=== PATIENT | male | born 1990 | race Caucasian/White ===

== ENCOUNTER 2018-07-07 08:17 | Day surgery (SDC) | payer MEDICAID ==
[~2018-07-07] VITALS: Ht 180.3 cm; Wt 83.5 kg
[2018-07-07] MEDS ORDERED: PROPOFOL 200MG/ 20ML VIAL (DIPRIVAN) IV ONE (09:48)
[2018-07-07] MEDS ORDERED: fentaNYL CITRATE/PF 100 MCG/2 ML AMP IVP ONE (09:48)
[2018-07-07] MEDS ORDERED: ONDANSETRON HCL 4 MG/2 ML VIAL IVP ONE (09:48)
[2018-07-07] MEDS ORDERED: MIDAZOLAM HCL 5 MG/5 ML VIAL IVP ONE (09:48)
[2018-07-07] MEDS ORDERED: LR 1,000 ML IV.SOLN IV ONE (09:48)
[2018-07-07] MEDS ORDERED: SEVOFLURANE 15 MIN GAS INH ONE (09:48)
[2018-07-07] MEDS ORDERED: fentaNYL CITRATE/PF 100 MCG/2 ML AMP IVP PRN ×2 (10:30)
[2018-07-07] MEDS ORDERED: ONDANSETRON HCL 4 MG/2 ML VIAL IVP PRN (10:30)
[2018-07-07 12:11] VITALS: BP_SYST 128
== END 2018-07-07 13:00 | disposition home or self-care (01) ==
LOC: SDS 08:17 → SMU 08:18 → SDS 13:00
PROVIDERS: ATTEND Otolaryngology
DX: S02.2XXA Fracture of nasal bones, initial encounter for closed fracture (principal); S06.9X9A Unspecified intracranial injury with loss of consciousness of unspecified duration, initial encounter; X58.XXXA Exposure to other specified factors, initial encounter; Y93.9 Activity, unspecified; Y92.89 Other specified places as the place of occurrence of the external cause; Y99.9 Unspecified external cause status; Z83.3 Family history of diabetes mellitus; Z79.899 Other long term (current) drug therapy; Z98.890 Other specified postprocedural states; J45.20 Mild intermittent asthma, uncomplicated
CPT/HCPCS: 21315; J2250; J2405; J2704; J3010; J7120